=== PATIENT | female | born 1965 | race Caucasian/White ===

== ENCOUNTER 2020-09-03 17:12 | Outpatient (REF) | payer BC, SELFPAY | END 2020-09-03 17:13 | disposition home or self-care (01) | LOC: HO.LAB 17:12 | PROVIDERS: PCP Family Medicine; Visit Provider Internal Medicine | DX: Z20.822 Contact with and (suspected) exposure to COVID-19 (principal) | CPT/HCPCS: 36415; C9803; U0003 ==

== ENCOUNTER 2022-08-26 06:39 | Emergency (ER) | payer BC, SELFPAY ==
[2022-08-26 07:02] VITALS: BP 153/80; PULSE 94; RESP 20; TEMP 36.7; O2SAT 96; BMI 37.0
--- OUTSIDE RECORDS SUMMARY | 2022-08-26 07:23 | XMS_ITS | Continuity of Care Document ---
:1965 Author Organization [facility] Address [address] [place] [address]- Care Team Providers Name Role Phone Rock Baum MD Primary Care Physician [place] [facility] [place] 08[place] [facility] [address] [place], [place] [address] Allergies, Adverse Reactions, Alerts Substance Reaction Severity Status erythromycin Active Immunizations Given and Recorded Vaccine Date Status Refusal Reason SARS-CoV-2 (COVID-19) mRNA-1273 vaccine 01/31/21 Recorded SARS-CoV-2 (COVID-19) mRNA-1273 vaccine 01/02/21 Recorded influenza virus vaccine, inactivated 06/04/20 Recorded Medications acetaminophen 325 mg oral tablet 650 mg, By Mouth, Every 6 hours, May take OTC, follow directions on bottle, Refills 0, Maintenance, 12/19/20 8:09:00 EDT, Partial fill upon patient request if the prescription is for a schedule II opioid drug. Start Date: 12/19/20 Status: OrderedAlbuterol (Eqv-ProAir HFA) 90 mcg/inh inhalation aerosol 0 Refills, Maintenance, 09/02/20 8:18:00 EST, Partial fill upon patient request if the prescription is for a schedule II opioid drug. Start Date: 09/02/20 Status: OrderedAllegra 24 Hour Allergy oral tablet 1 tablet, By Mouth, Daily at bedtime, PRN Other, # 30 tablet, 0 Refills, Maintenance, 12/18/20 8:19:00 EDT, Tablet, Partial fill upon patient request if the prescription is for a schedule II opioid drug. Start Date: 12/18/20 Status: Orderedaspirin 162.5 mg oral capsule, extended release = 325 mg, By Mouth, 2 times a day, enteric coated, 0 Refills, Maintenance, 12/19/20 8:11:00 EDT, ER Capsule, Partial fill upon patient request if the prescription is for a schedule II opioid drug. Start Date: 12/19/20 Status: Orderedazelastine 137 mcg/inh (0.1%) nasal spray 0 Refills, Maintenance, 09/02/20 8:18:00 EST, Partial fill upon patient request if the prescription is for a schedule II opioid drug. Start Date: 09/02/20 Status: OrderedLORazepam 0.5 mg oral tablet 0.5 tablet, By Mouth, 2 times a day, # 15 tablet, 0 Refills, Acute 08/18/21 12:00:00 EST, 07/28/21 14:25:00 EST, [facility]/pharmacy #[id number], 162, cm, 06/23/21 10:55:00 EST, Height Start Date: 07/28/21 Stop Date: 08/18/21 Status: OrderedOmeprazole By Mouth, Daily, OTC, pt unsure of dose, 0 Refills, Maintenance, 02/05/21 13:16:00 EDT, Partial fillupon patient request if the prescription is for a schedule II opioid drug. Start Date: 02/05/21 Status: OrderedtiZANidine 2 mg oral tablet 1, tablet, By Mouth, Daily at bedtime, PRN, # 30 tablet, Refills 1, Tot. Refills 1, NEEDED FOR PAIN, 06/01/21 9:00:00 EDT, Route to Pharmacy Electronically, [facility]/pharmacy #[id number], 162, cm, 03/09/21 15:53:00 EDT, Height Start Date: 06/01/21 Status: Ordered Problem List Condition Effective Dates Status Health Status Informant Anxiety(Confirmed) Active Knee pain, right(Confirmed) Active Restless leg syndrome(Confirmed) Active Social History Social History Type Response Smoking Status Former smoker, quit more arnold n 30 days ago; Other: last tobacco use 1989; entered on: 09/02/20 Sex
--- OUTSIDE RECORDS SUMMARY | 2022-08-26 07:23 | XMS_ITS | Continuity of Care Document ---
:1965 Author Organization [facility] Address [address] [place] [address]- Care Team Providers Name Role Phone Rock Baum MD Primary Care Physician En[facility] [place] [facility] [id number] Date(s): 02/05/21 - 03/07/21 [facility] [address] [place] [address]- Allergies, Adverse Reactions, Alerts Substance Reaction Severity [...] 09/02/20 Status: OrderedLORazepam 0.5 mg oral tablet 1 tablet = 0.5 mg, By Mouth, 2 times a day, PRN Anxiety, 0 Refills, Maintenance, 12/19/20 8:18:00 EDT, Tablet, Partial fill upon patient request if the prescription is for a schedule II opioid drug. Start Date: 12/19/20 Status: OrderedLORazepam 0.5 mg oral tablet 1 tablet = 0.5 mg, By Mouth, 2 times a day, PRN as needed for anxiety, for 30 days, mass pt ok, ok for less, # 15 tablet, 0 Refills, Acute 03/20/21 8:54:00 EDT, 02/18/21 8:54:00 EDT, [facility]/pharmacy #[id number], Partial fill upon patient request if the prescri... Start Date: 02/18/21 Stop Date: 03/20/21 Status: OrderedOmeprazole By Mouth, Daily, OTC, pt unsure of dose, 0 Refills, Maintenance, 02/05/21 13:16:00 EDT, Partial fillupon patient request if the prescription is for a schedule II opioid drug. Start Date: 02/05/21 Status: Ordered Problem List Condition Effective Dates Status Health Status Informant Knee pain, right(Confirmed) Active Colon cancer screening(Confirmed) Active Restless leg syndrome(Confirmed) Active Social History Social History Type Response Smoking Status Former smoker, quit more arnold n 30 days ago; Other: last tobacco use 1989; entered on: 09/02/20 Sex
--- OUTSIDE RECORDS SUMMARY | 2022-08-26 07:23 | XMS_ITS | Continuity of Care Document ---
:1965 Author Organization [facility] Address [address] [place] [address]- Care Team Providers Name Role Phone Rock Baum MD Primary Care Physician [place] [facility] [place] 09/29/21 - 10/29/21 [facility] [address] [place] [address]- Allergies, Adverse Reactions, Alerts Substance Reaction Severity Status erythromycin Active Immunizations Given and Recorded Vaccine Date Status Refusal Reason zoster vaccine, inactivated 05/22/21 Recorded influenza virus vaccine, inactivated 05/22/21 Recorded influenza virus vaccine, inactivated 06/04/20 Recorded SARS-CoV-2 (COVID-19) mRNA-1273 vaccine 01/31/21 Recorded SARS-CoV-2 (COVID-19) mRNA-1273 vaccine 01/02/21 Recorded Medications acetaminophen 325 mg oral tablet [...] 12/19/20 Status: OrderedLORazepam 0.5 mg oral tablet 0.5 tablet, By Mouth, 2 times a day, # 15 tablet, 0 Refills, Maintenance, 10/29/21 17:22:00 EDT, [facility]/pharmacy #[id number], 162, cm, 10/26/21 13:59:00 EDT, Height Start Date: 10/29/21 Status: OrderedOmeprazole By Mouth, Daily, OTC, pt unsure of dose, 0 Refills, Maintenance, 02/05/21 13:16:00 EDT, Partial fillupon patient request if the prescription is for a schedule II opioid drug. Start Date: 02/05/21 Status: OrderedtiZANidine 4 mg oral tablet 4 mg, 1, tablet, By Mouth, Daily at bedtime, # 30 tablet, Refills 3, Tot. Refills 3, Maintenance, 10/29/21 14:38:00 EDT, Route to Pharmacy Electronically, [facility]/pharmacy #[id number], Partial fill upon patient request if the prescription is for a schedule II o... Start Date: 10/29/21 Stop Date: 02/26/22 Status: Ordered Problem List Condition Effective Dates Status Health Status Informant Anxiety(Confirmed) Active Obese class II(Confirmed) Active Restless leg syndrome(Confirmed) Active Social History Social History Type Response Smoking Status Former smoker, quit more arnold n 30 days ago; Other: last tobacco use 1989; entered on: 09/02/20 Sex
--- OUTSIDE RECORDS SUMMARY | 2022-08-26 07:23 | XMS_ITS | Continuity of Care Document ---
:1965 Author Organization [facility] Address [address] [place] [address]- Care Team Providers Name Role Phone Rock Baum MD Primary Care Physician En[facility] Date(s): 08/26/21 - 09/25/21 [facility] [address] [place] [address]- Attending Physician: Jairo Juarez Admitting Physician: Admtr, [id number] Referring Physician: Admtr, Ar8 Allergies, Adverse Reactions, Alerts Substance Reaction Severity [...] day, # 15 tablet, 0 Refills, Maintenance, 09/18/21 12:16:00 EST, [facility]/pharmacy #[id number], 162, cm, 08/26/21 15:43:00 EST, Height Start Date: 09/18/21 Status: OrderedOmeprazole By Mouth, Daily, OTC, pt unsure of dose, 0 Refills, Maintenance, 02/05/21 13:16:00 EDT, Partial fillupon patient request if the prescription is for a schedule II opioid drug. Start Date: 02/05/21 Status: OrderedtiZANidine 4 mg oral tablet 4 mg, 1, tablet, By Mouth, Daily at bedtime, # 30 tablet, Refills 3, Tot. Refills 3, Maintenance, 08/26/21 16:09:00 EST, Do Not Route, Partial fill upon patient request if the prescription is for a schedule II opioid drug. Start Date: 08/26/21 Stop Date: 12/24/21 Status: Ordered Problem List Condition Effective Dates Status Health Status Informant Anxiety(Confirmed) Active Obese class II(Confirmed) Active Restless leg syndrome(Confirmed) Active Social History Social History Type Response Smoking Status Former smoker, quit more arnold n 30 days ago; Other: last tobacco use 1989; entered on: 09/02/20 Sex
--- OUTSIDE RECORDS SUMMARY | 2022-08-26 07:23 | XMS_ITS | Continuity of Care Document ---
:1965 Author Organization [facility] Address [address] [place] [address]- Care Team Providers Name Role Phone Rock Baum MD Primary Care Physician [place] [facility] [place] 02/24/22 - 03/26/22 [facility] [address] [place], [place] [address] Allergies, Adverse Reactions, Alerts Substance Reaction Severity [...] day, # 15 tablet, 0 Refills, Maintenance, 01/28/22 14:58:00 EDT, [facility]/pharmacy #[id number], 160, cm, 12/29/21 13:38:00 EDT, Height Start Date: 01/28/22 Status: OrderedOmeprazole By Mouth, Daily, OTC, pt unsure of dose, 0 Refills, Maintenance, 02/05/21 13:16:00 EDT, Partial fillupon patient request if the prescription is for a schedule II opioid drug. Start Date: 02/05/21 Status: OrderedtiZANidine 4 mg oral tablet 4 mg, 1, tablet, By Mouth, Daily at bedtime, # 30 tablet, Refills 3, Tot. Refills 3, Maintenance, 03/02/22 13:10:00 EDT, Route to Pharmacy Electronically, [facility]/pharmacy #[id number], Partial fill upon patient request if the prescription is for a schedule II o... Start Date: 03/02/22 Stop Date: 06/30/22 Status: Ordered Problem List Condition Effective Dates Status Health Status Informant Anxiety(Confirmed) Active Obese class II(Confirmed) Active Restless leg syndrome(Confirmed) Active Social History Social History Type Response Smoking Status Former smoker, quit more arnold n 30 days ago; Other: last tobacco use 1989; entered on: 09/02/20 Sex
--- OUTSIDE RECORDS SUMMARY | 2022-08-26 07:23 | XMS_ITS | Continuity of Care Document ---
:1965 Author Organization [facility] Address [address] [place] [address]- Care Team Providers Name Role Phone Rock Baum MD Primary Care Physician Encounter 12/20/20 - 12/25/20 [facility] [address] [place] [address]- Discharge Disposition: [facility] Allergies, Adverse Reactions, Alerts Substance Reaction Severity Status erythromycin Active Medications acetaminophen 325 mg oral tablet 650 [...] II opioid drug. Start Date: 09/02/20 Status: Orderedcelecoxib 200 mg oral capsule 1 capsule = 200 mg, By Mouth, Daily, # 30 capsule, 0 Refills, Maintenance, 12/19/20 8:11:00 EDT, Capsule, [facility], Partial fill upon patient request if the prescription is for a schedule II opioid drug., 162, cm, 12/19/20 6:21:00 EDT,... Start Date: 12/19/20 Stop Date: 01/18/21 Status: OrderedLORazepam 0.5 mg oral tablet 1 tablet = 0.5 mg, By Mouth, 2 times a day, PRN Anxiety, 0 Refills, Maintenance, 12/19/20 8:18:00 EDT, Tablet, Partial fill upon patient request if the prescription is for a schedule II opioid drug. Start Date: 12/19/20 Status: OrderedMaalox Plus Liquid 30 mL, By Mouth, Every 4 hours, PRN Other, Heartburn, 0 Refills, Maintenance, 12/19/20 8:11:00 EDT, Suspension, Partial fill upon patient request if the prescription is for a schedule II opioid drug. Start Date: 12/19/20 Status: OrderedMilk of Magnesia Liquid 30 mL, By Mouth, Daily, PRN Constipation, 0 Refills, Maintenance, 12/19/20 8:12:00 EDT, Suspension, Partial fill upon patient request if the prescription is for a schedule II opioid drug. Start Date: 12/19/20 Status: OrderedMiraLax Powder 1 pack/packet = 17 Gm, By Mouth, Daily, PRN Constipation, 0 Refills, Maintenance, 12/19/20 8:12:00 EDT, Powder, Partial fill upon patient request if the prescription is for a schedule II opioid drug. Start Date: 12/19/20 Status: Orderedsenna 187 mg oral tablet 1 tablet = 8.6 mg, By Mouth, Daily at bedtime, PRN as needed for constipation, 0 Refills, Maintenance, 12/19/20 8:13:00 EDT, Tablet, Partial fill upon patient request if the prescription is for a schedule II opioid drug. Start Date: 12/19/20 Status: OrderedtiZANidine 2 mg oral tablet 2 mg, 1, tablet, By Mouth, Daily at bedtime, PRN, Please do Labwork, # 30 tablet, Refills 1, Tot. Refills 1, Maintenance, Pain , Moderate, 09/25/20 9:51:00 EST, Route to Pharmacy Electronically, [facility]/pharmacy #[id number], Partial fill upon patient request if... Start Date: 09/25/20 Status: OrderedtraMADol 50 mg oral tablet See Instructions, PRN Pain , Mild, Take 1-2 tablets By Mouth Every 6 hours as needed, # 56 tablet, 0Refills, Acute 12/26/20 8:13:00 EDT, 12/19/20 8:13:00 EDT, Tablet, [facility], Partialfill upon patient request if the prescription is... Start Date: 12/19/20 Stop Date: 12/26/20 Status: Ordered Problem List Condition Effective Dates Status Health Status Informant Knee pain, right(Confirmed) Active Colon cancer screening(Confirmed) Active Restless leg syndrome(Confirmed) Active Social History Social History Type Response Smoking Status Former smoker, quit more arnold n 30 days ago; Other: last tobacco use 1989; entered on: 09/02/20 Sex
--- OUTSIDE RECORDS SUMMARY | 2022-08-26 07:23 | XMS_ITS | Continuity of Care Document ---
:1965 Author Organization [facility] Address [address] [place] [address]- Care Team Providers Name Role Phone Rock Baum MD Primary Care Physician Encounter [facility] [place] Date(s): 11/28/20 - 12/28/[address] [address]- Attending Physician: Jairo Juarez Admitting Physician: AdmtrJairo Referring Physician: Admtr, Ar8 Allergies, Adverse Reactions, [...] 0 Refills, Maintenance, 12/19/20 8:11:00 EDT, Capsule, [facility], Partial fill upon patient [...] 09/25/20 9:51:00 EST, Route to Pharmacy Electronically, [facility]/pharmacy #[id number], Partial fill upon patient request if... Start Date: 09/25/20 Status: Ordered Problem List Condition Effective Dates Status Health Status Informant Knee pain, right(Confirmed) Active Colon cancer screening(Confirmed) Active Restless leg syndrome(Confirmed) Active Social History Social History Type Response Smoking Status Former smoker, quit more arnold n 30 days ago; Other: last tobacco use 1989; entered on: 09/02/20 Sex
--- OUTSIDE RECORDS SUMMARY | 2022-08-26 07:23 | XMS_ITS | Continuity of Care Document ---
:1965 Author Organization [facility] Address [address] [place] [address]- Care Team Providers Name Role Phone Rock Baum MD Primary Care Physician [place] [facility] [place](s[place] 03/04/22 - 03/11/22 [facility] [address] [place] [address]- Encounter Diagnosis Right shoulder pain (Discharge Diagnosis) - 03/04/22 Pain of left heel (Discharge Diagnosis) - 03/04/22 Knee pain (Discharge Diagnosis) - 03/04/22 Attending Physician: Rock Baum MD Allergies, Adverse Reactions, Alerts Substance Reaction Severity [...] tablet, 0 Refills, Maintenance, 01/28/22 14:58:00 EDT, [facility]/pharmacy #[id number], 160, cm, 12/29/21 13:38:00 EDT, [...] 03/02/22 13:10:00 EDT, Route to Pharmacy Electronically, [facility]/pharmacy #[id number], Partial fill upon patient request if the prescription is for a schedule II o... Start Date: 03/02/22 Stop Date: 06/30/22 Status: Ordered Problem List Condition Effective Dates Status Health Status Informant Anxiety(Confirmed) Active Obese class II(Confirmed) Active Restless leg syndrome(Confirmed) Active Diagnosis Diagnosis Type Effective Dates Health Status Clinical In formant Service Right shoulder Discharge 03/04/22 pain Diagnosis Pain of left Discharge 03/04/22 heel Diagnosis Knee pain Discharge 03/04/22 Diagnosis Vital Signs Most recent to oldest [Reference Range]: 1 Height 160 cm (03/04/22 8:20 AM) Weight 97.8 kg (03/04/22 8:20 AM) Oxygen Saturation [94-100 %] 98 % (03/04/22 8:20 AM) Pulse Rate [55-90 bpm] 90 bpm (03/04/22 8:20 AM) Body Mass Index [18.5-24.99] 38.2 *>HHI* (03/04/22 8:20 AM) Blood Pressure [90-138/55-84 mm Hg] 137/82 mm Hg (03/04/22 8:20 AM) Respiratory Rate [16-30 br/min] 20 br/min (03/04/22 8:20 AM) Blood pressure sites Arm, left (03/04/22 8:20 AM) Social History Social History Type Response Smoking Status Former smoker, quit more arnold n 30 days ago; Other: last tobacco use 1989; entered on: 09/02/20 Sex
--- OUTSIDE RECORDS SUMMARY | 2022-08-26 07:23 | XMS_ITS | Continuity of Care Document ---
:1965 Author Organization [facility] Address [address] [place] [address]- Care Team Providers Name Role Phone Rock Baum MD Primary Care Physician [place] [facility] [place] Date(s[place] 02/05/21 - 03/07/21 [facility] [address] [place] [address]- Attending Physician: Jairo Juarez Admitting Physician: Admtr, [...] Acute 03/20/21 8:54:00 EDT, 02/18/21 8:54:00 EDT, [facility]/pharmacy #[id number], Partial fill upon patient request [...]
--- OUTSIDE RECORDS SUMMARY | 2022-08-26 07:23 | XMS_ITS | Continuity of Care Document ---
:1965 Author Organization [facility] Address [address] [place] [address]- Care Team Providers Name Role Phone Rock Baum MD Primary Care Physician [place] [facility] [place] - 04/03/22 [facility] [address] [place], [place] [address] Attending Physician: Jairo Juarez Admitting Physician: AdmtrJairo [...] tablet, 0 Refills, Maintenance, 01/28/22 14:58:00 EDT, [facility]/pharmacy #[id number], 160, cm, 12/29/21 13:38:00 EDT, [...] 03/02/22 13:10:00 EDT, Route to Pharmacy Electronically, [facility]/pharmacy #[id number], Partial fill upon patient request [...]
--- OUTSIDE RECORDS SUMMARY | 2022-08-26 07:24 | XMS_ITS | Continuity of Care Document ---
:1965 Author Organization [facility] Address [address] [place] [address]- Care Team Providers Name Role Phone Rock Baum MD Primary Care Physician En[place] [facility] [place] Date(s): 01/07/21 - 02/06/21 [facility] [address] [place] [address]- Allergies, Adverse Reactions, Alerts Substance Reaction Severity [...] II opioid drug. Start Date: 12/19/20 Status: OrderedOmeprazole By Mouth, Daily, OTC, pt [...]
--- OUTSIDE RECORDS SUMMARY | 2022-08-26 07:24 | XMS_ITS | Continuity of Care Document ---
:1965 Author Organization [facility] Address [address] [place] [address]- Care Team Providers Name Role Phone Rock Baum MD Primary Care Physician [place] [facility] [place] Date(s): 11/17/21 - 12/17/21 [facility] [address] [place], [place] [address] Allergies, Adverse Reactions, Alerts Substance Reaction [...] tablet, 0 Refills, Maintenance, 10/29/21 17:22:00 EDT, [facility]/pharmacy #[id number], 162, cm, 10/26/21 13:59:00 EDT, [...] 10/29/21 14:38:00 EDT, Route to Pharmacy Electronically, [facility]/pharmacy #[id number], Partial fill upon patient request [...]
--- OUTSIDE RECORDS SUMMARY | 2022-08-26 07:24 | XMS_ITS | Continuity of Care Document ---
:1965 Author Organization [facility] Address [address] [place] [address]- Care Team Providers Name Role Phone Rock Baum MD Primary Care Physician En[facility] [place] Date(s): 03/15/22 - 04/14/22 [facility] [address] [place], [place] [address] Allergies, Adverse Reactions, Alerts Substance Reaction [...] day, # 15 tablet, 0 Refills, Maintenance, 04/05/22 8:19:00 EDT, [facility]/pharmacy #[id number], 160, cm, 03/04/22 8:20:00 EDT, Height Start Date: 04/05/22 Status: OrderedOmeprazole By Mouth, Daily, OTC, pt [...] 03/02/22 13:10:00 EDT, Route to Pharmacy Electronically, [facility]/pharmacy #[id number], Partial fill upon patient request if [...] tobacco use 1989; entered on: 09/02/20 Sex Care Team PersonnelName: Rock Baum MD Address: [address] [place] [id number]
--- OUTSIDE RECORDS SUMMARY | 2022-08-26 07:24 | XMS_ITS | Continuity of Care Document ---
:1965 Author Organization [facility] Address [address] [place] [address]- Care Team Providers Name Role Phone Rock Baum MD Primary Care Physician [id number] Date(s): 08/26/21 - 09/02/21 [facility] [address] [place] [address]- Encounter Diagnosis Annual physical exam (Discharge Diagnosis) - 08/26/21 GERD (gastroesophageal reflux disease) (Discharge Diagnosis) - 08/26/21 Restless leg syndrome (Discharge Diagnosis) - 08/26/21 Attending Physician: Rock Baum MD Allergies, Adverse [...] Dates Health Status Clinical In formant Service Annual physical Discharge 08/26/21 exam Diagnosis GERD Discharge 08/26/21 (gastroesophagea Diagnosis l reflux disease) Restless leg Discharge 08/26/21 syndrome Diagnosis Vital Signs Most recent to oldest [Reference Range]: 1 Height 162 cm (08/26/21 3:43 PM) Weight 95.4 kg (08/26/21 3:43 PM) Oxygen Saturation [94-100 %] 97 % (08/26/21 3:43 PM) Pulse Rate [55-90 bpm] 90 bpm (08/26/21 3:43 PM) Body Mass Index [18.5-24.99] 36.35 *>HHI* (08/26/21 3:43 PM) Blood Pressure [90-138/55-84 mm Hg] 120/80 mm Hg (08/26/21 3:43 PM) Weight Obtained Via Standing scale (08/26/21 3:43 PM) Social History Social History Type Response Smoking Status Former smoker, quit more arnold n 30 days ago; Other: last tobacco use 1989; entered on: 09/02/20 Sex
--- OUTSIDE RECORDS SUMMARY | 2022-08-26 07:24 | XMS_ITS | Continuity of Care Document ---
:1965 Author Organization [facility] Address [address] [place] [address]- Care Team Providers Name Role Phone Rock Baum MD Primary Care Physician En[place] [facility] [place] Date(s): 03/15/22 - 04/14/22 [facility] [address] [place], [place] [address] Allergies, Adverse Reactions, Alerts Substance Reaction [...] tablet, 0 Refills, Maintenance, 04/05/22 8:19:00 EDT, [facility]/pharmacy #[id number], 160, cm, 03/04/22 8:20:00 EDT, Height [...] 03/02/22 13:10:00 EDT, Route to Pharmacy Electronically, [facility]/pharmacy #[id number], Partial fill upon patient request if [...] Care Team PersonnelName: Rock Baum MD Address: [address] [place] [address]
--- OUTSIDE RECORDS SUMMARY | 2022-08-26 07:24 | XMS_ITS | Continuity of Care Document ---
:1965 Author Organization [facility] Address [address] [place] [address]- Care Team Providers Name Role Phone Rock Baum MD Primary Care Physician [place] [facility] [place] 10/20/21 - 11/19/21 [facility] [address] [place] [address]- Allergies, Adverse Reactions, Alerts Substance Reaction Severity [...] tablet, 0 Refills, Maintenance, 10/29/21 17:22:00 EDT, [facility]/pharmacy #[id number], 162, cm, 10/26/21 13:59:00 EDT, Height [...] 10/29/21 14:38:00 EDT, Route to Pharmacy Electronically, [facility]/pharmacy #[id number], Partial fill upon patient request if [...]
--- OUTSIDE RECORDS SUMMARY | 2022-08-26 07:24 | XMS_ITS | Continuity of Care Document ---
:1965 Author Organization [facility] Address [address] [place] [address]- Care Team Providers Name Role Phone Rock Baum MD Primary Care Physician Encounter [facility] Date(s): 09/02/20 - 09/09/20 [facility] [address] [place] [address]- Encounter Diagnosis Knee pain, right (Discharge Diagnosis) - 09/02/20 Restless leg syndrome (Discharge Diagnosis) - 09/02/20 Colon cancer screening (Discharge Diagnosis) - 09/02/20 Lipid screening (Discharge Diagnosis) - 09/02/20 Need for hepatitis C screening test (Discharge Diagnosis) - 09/02/20 Diabetes mellitus screening (Discharge Diagnosis) - 09/02/20 Anxiety (Discharge Diagnosis) - 09/02/20 Attending Physician: Rock Baum MD Allergies, Adverse Reactions, Alerts Substance Reaction Severity Status erythromycin Active Medications Albuterol (Eqv-ProAir HFA) 90 mcg/inh inhalation aerosol 0 Refills, Maintenance, 09/02/20 8:18:00 EST, Partial fill upon patient request if the prescription is for a schedule II opioid drug. Start Date: 09/02/20 Status: Orderedazelastine 137 mcg/inh (0.1%) nasal spray 0 Refills, Maintenance, 09/02/20 8:18:00 EST, Partial fill upon patient request if the prescription is for a schedule II opioid drug. Start Date: 09/02/20 Status: OrderedFluzone Quadrivalent 9700-8044 intramuscular suspension 0 Refills, Maintenance, 09/02/20 8:17:00 EST, Partial fill upon patient request if the prescription is for a schedule II opioid drug. Start Date: 09/02/20 Status: Orderedlevocetirizine 5 mg oral tablet 0 Refills, Maintenance, 09/02/20 8:17:00 EST, Partial fill upon patient request if the prescription is for a schedule II opioid drug. Start Date: 09/02/20 Status: OrderedLORazepam 0.5 mg oral tablet 1 tablet = 0.5 mg, By Mouth, 2 times a day, PRN as needed for anxiety, # 15 tablet, 0 Refills, Acute09/30/20 12:00:00 EST, 09/02/20 8:54:00 EST, [facility]/pharmacy #[id number], Partial fill upon patient request if the prescription is for a schedule II opioid drug. Start Date: 09/02/20 Stop Date: 09/30/20 Status: OrderedtiZANidine 2 mg oral tablet 2 mg, 1, tablet, By Mouth, Daily at bedtime, as needed, # 30 tablet, Refills 1, Tot. Refills 1, Maintenance, 09/02/20 8:52:00 EST, Route to Pharmacy Electronically, [facility]/pharmacy #[id number], Partial fill upon patient request if the prescription is for a jeanette... Start Date: 09/02/20 Status: Ordered Problem List Condition Effective Dates Status Health Status Informant Knee pain, right(Confirmed) Active Colon cancer screening(Confirmed) Active Restless leg syndrome(Confirmed) Active Diagnosis Diagnosis Type Effective Dates Health Status Clinical In formant Service Knee pain, right Discharge 09/02/20 Diagnosis Restless leg Discharge 09/02/20 syndrome Diagnosis Colon cancer Discharge 09/02/20 screening Diagnosis Lipid screening Discharge 09/02/20 Diagnosis Need for Discharge 09/02/20 hepatitis C Diagnosis screening test Diabetes Discharge 09/02/20 mellitus Diagnosis screening Anxiety Discharge 09/02/20 Diagnosis Procedures Procedure Date Related Diagnosis Body Site Status Knee replacement1 Completed Repair of knee joint Complet ed Total right shoulder replacement Completed 72119 Social History Social History Type Response Smoking Status Former smoker, quit more arnold n 30 days ago; Other: last tobacco use 1989; entered on: 09/02/20 Sex Female
--- OUTSIDE RECORDS SUMMARY | 2022-08-26 07:24 | XMS_ITS | Continuity of Care Document ---
:1965 Author Organization [facility] Address [address] [place] [address]- Care Team Providers Name Role Phone Sarika CRESPO, Rock Benavides Primary Care Physician Encounter [facility] [id number] Date(s): 02/05/21 - 02/12/21 [facility] [address] [place] [address]- Encounter Diagnosis Local reaction to COVID-19 vaccine (Discharge Diagnosis) - 02/05/21 Attending Physician: Gemma Gardner MD Allergies, Adverse Reactions, Alerts Substance Reaction [...] Dates Health Status Clinical In formant Service Local reaction Discharge 02/05/21 to COVID-19 Diagnosis vaccine Vital Signs Most recent to oldest [Reference Range]: 1 Height 162 cm (02/05/21 1:11 PM) Social History Social History Type Response Smoking Status Former smoker, quit more arnold n 30 days ago; Other: last tobacco use 1989; entered on: 09/02/20 Sex
--- OUTSIDE RECORDS SUMMARY | 2022-08-26 07:24 | XMS_ITS | Continuity of Care Document ---
:1965 Author Organization [facility] Address [address] [place] [address]- Care Team Providers Name Role Phone Rock Baum MD Primary Care Physician Encounter [facility] Date(s): 10/26/21 - 11/25/21 [facility] [address] [place] [address]- Attending Physician: Jairo Juarez Admitting Physician: Jairo Juarez Referring Physician: Jairo Juarez Allergies, Adverse Reactions, Alerts Substance Reaction Severity [...] tablet, 0 Refills, Maintenance, 10/29/21 17:22:00 EDT, [facility]/pharmacy #[id number], 162, cm, 10/26/21 13:59:00 EDT, [...] 10/29/21 14:38:00 EDT, Route to Pharmacy Electronically, [facility]/pharmacy #[id number], Partial fill upon patient request [...]
--- OUTSIDE RECORDS SUMMARY | 2022-08-26 07:24 | XMS_ITS | Continuity of Care Document ---
:1965 Author Organization [facility] Address [address] [place] [address]- Care Team Providers Name Role Phone Rock Baum MD Primary Care Physician [place] [facility] [place] 10/21/21 - 11/20/21 [facility] [address] [place] [address]- Allergies, Adverse Reactions, Alerts Substance Reaction Severity [...] tablet, 0 Refills, Maintenance, 10/29/21 17:22:00 EDT, [facility]/pharmacy #[id number], 162, cm, 10/26/21 13:59:00 EDT, Height [...] 10/29/21 14:38:00 EDT, Route to Pharmacy Electronically, [facility]/pharmacy #[id number], Partial fill upon patient request [...]
--- OUTSIDE RECORDS SUMMARY | 2022-08-26 07:24 | XMS_ITS | Continuity of Care Document ---
:1965 Author Organization [facility] Address [address] [place] [address]- Care Team Providers Name Role Phone Sarika CRESPO, Rock Benavides Primary Care Physician Encounter [facility] [place] Date(s): 11/22/20 - 12/28/[address] [address] Attending Physician: Pedro Hardwick MD Admitting Physician: Pedro Hardwick MD Referring Physician: Pedro Hardwick MD Allergies, Adverse Reactions, Alerts Substance Reaction [...] 0 Refills, Maintenance, 12/19/20 8:11:00 EDT, Capsule, [facility], Partial fill upon patient [...] 09/25/20 9:51:00 EST, Route to Pharmacy Electronically, [facility]/pharmacy #[id number], Partial fill upon patient request if... Start [...]
--- OUTSIDE RECORDS SUMMARY | 2022-08-26 07:24 | XMS_ITS | Continuity of Care Document ---
:1965 Author Organization [facility] Address [address] [place] [address]- Care Team Providers Name Role Phone Rock Baum MD Primary Care Physician Encounter [facility] [place] [facility] Date(s): 09/02/20 - 10/02/20 [facility] [address] [place] [address]- Attending Physician: Jairo Juarez Admitting Physician: Jairo Juarez Referring Physician: AdmtrJairo Allergies, Adverse Reactions, Alerts Substance Reaction Severity [...] drug. Start Date: 09/02/20 Status: OrderedFluzone Quadrivalent intramuscular suspension 0 Refills, Maintenance, 09/02/20 8:17:00 EST, Partial fill upon patient request if the prescription is for a schedule II opioid drug. Start Date: 09/02/20 Status: Orderedlevocetirizine 5 mg oral tablet 0 Refills, Maintenance, 09/02/20 8:17:00 EST, Partial fill upon patient request if the prescription is for a schedule II opioid drug. Start Date: 09/02/20 Status: OrderedtiZANidine 2 mg oral tablet 2 mg, 1, tablet, By Mouth, Daily at bedtime, PRN, Please do Labwork, # 30 tablet, Refills 1, Tot. Refills 1, Maintenance, Pain , Moderate, 09/25/20 9:51:00 EST, Route to Pharmacy Electronically, [facility]/pharmacy #[id number], Partial fill upon patient request if... Start [...]
--- OUTSIDE RECORDS SUMMARY | 2022-08-26 07:24 | XMS_ITS | Continuity of Care Document ---
:1965 Author Organization [facility] Address [address] [place] [address]- Care Team Providers Name Role Phone Rock Baum MD Primary Care Physician [place] [facility] [place]s): 03/09/21 - 04/08/21 [facility] [address] [place] [address]- Attending Physician: Jairo Juarez Admitting Physician: AdmtrJairo [...] Mouth, 2 times a day, PRN Anxiety, # 15 tablet, 0 Refills, Acute 04/17/21 10:38:00 EDT, 03/31/21 16:56:00 EDT, Tablet, [facility]/pharmacy #[id number], Partial fill upon patient request if theprescription is for a schedule II opioid drug., 1... Start Date: 03/31/21 Stop Date: 04/17/21 Status: OrderedOmeprazole By Mouth, Daily, OTC, pt unsure of dose, 0 Refills, Maintenance, 02/05/21 13:16:00 EDT, Partial fillupon patient request if the prescription is for a schedule II opioid drug. Start Date: 02/05/21 Status: Ordered Problem List Condition Effective Dates Status Health Status Informant Knee pain, right(Confirmed) Active Restless leg syndrome(Confirmed) Active Social History Social History Type Response Smoking Status Former smoker, quit more arnold n 30 days ago; Other: last tobacco use 1989; entered on: 09/02/20 Sex
--- OUTSIDE RECORDS SUMMARY | 2022-08-26 07:24 | XMS_ITS | Continuity of Care Document ---
:1965 Author Organization [facility] Address [address] [place] [address]- Care Team Providers Name Role Phone Rock Baum MD Primary Care Physician Encounter [facility] Date(s): 06/23/21 - 06/30/21 [facility] [address] [place], [place] [address] Encounter Diagnosis Ear fullness (Discharge Diagnosis) - 06/28/21 Attending Physician: Manolo BAKER, Rome Nielson Allergies, Adverse Reactions, Alerts Substance Reaction Severity [...] II opioid drug. Start Date: 09/02/20 Status: Orderedipratropium nasal 21 mcg/inh spray 2 sprays, Nares, Both, 2 times a day, for 14 days, # 30 mL, 0 Refills, Acute 07/07/21 11:29:00 EST, 06/23/21 11:29:00 EST, [place], [facility]/pharmacy #[id number], Partial fill upon patient request if the prescription is for a schedule II opioid drug., 2 sprays Carl... Start Date: 06/23/21 Stop Date: 07/07/21 Status: OrderedLORazepam 0.5 mg oral tablet 1 tablet = 0.5 mg, By Mouth, Daily, PRN Anxiety, As needed for anxiety, # 15 tablet, 0 Refills, Maintenance, 06/24/21 16:34:00 EST, Tablet, [facility]/pharmacy #[id number], Partial fill upon patient request if the prescription is for a schedule II opioid drug., 16... Start Date: 06/24/21 Status: OrderedOmeprazole By Mouth, Daily, OTC, pt [...] 06/01/21 9:00:00 EDT, Route to Pharmacy Electronically, [facility]/pharmacy #[id number], 162, cm, 03/09/21 15:53:00 EDT, Height Start Date: 06/01/21 Status: Ordered Problem List Condition Effective Dates Status Health Status Informant Anxiety(Confirmed) Active Knee pain, right(Confirmed) Active Restless leg syndrome(Confirmed) Active Diagnosis Diagnosis Type Effective Dates Health Status Clinical In formant Service Ear fullness Discharge 06/28/21 Diagnosis Vital Signs Most recent to oldest [Reference Range]: 1 Height 162 cm (06/23/21 10:55 AM) Oxygen Saturation [94-100 %] 96 % (06/23/21 10:55 AM) Pulse Rate [55-90 bpm] 86 bpm (06/23/21 10:55 AM) Blood Pressure [90-138/55-84 mm Hg] 125/82 mm Hg (06/23/21 10:55 AM) Respiratory Rate [16-30 br/min] 18 br/min (06/23/21 10:55 AM) Blood pressure sites Arm, right (06/23/21 10:55 AM) Social History Social History Type Response Smoking Status Former smoker, quit more arnold n 30 days ago; Other: last tobacco use 1989; entered on: 09/02/20 Sex
--- OUTSIDE RECORDS SUMMARY | 2022-08-26 07:24 | XMS_ITS | Continuity of Care Document ---
:1965 Author Organization [facility] Address [address] [place] [address]- Care Team Providers Name Role Phone Rock Baum MD Primary Care Physician Encounter [facility] Date(s): 04/14/21 - 05/14/21 [facility] [address] [place], [place] [address] Allergies, Adverse Reactions, Alerts Substance Reaction [...] II opioid drug. Start Date: 09/02/20 Status: OrderedOmeprazole By Mouth, Daily, OTC, pt unsure of dose, 0 Refills, Maintenance, 02/05/21 13:16:00 EDT, Partial fillupon patient request if the prescription is for a schedule II opioid drug. Start Date: 02/05/21 Status: OrderedtiZANidine 2 mg oral tablet 1, tablet, By Mouth, Daily at bedtime, PRN, # 30 tablet, Refills 1, NEEDED FOR PAIN, Route to Pharmacy Electronically, [id number], 162, cm, 03/09/21 15:53:00 EDT, Height Start Date: 05/04/21 Status: Ordered Problem List Condition Effective Dates Status Health Status Informant Anxiety(Confirmed) Active Knee pain, right(Confirmed) Active Restless leg syndrome(Confirmed) Active Social History Social History Type Response Smoking Status Former smoker, quit more arnold n 30 days ago; Other: last tobacco use 1989; entered on: 09/02/20 Sex
--- OUTSIDE RECORDS SUMMARY | 2022-08-26 07:24 | XMS_ITS | Continuity of Care Document ---
:1965 Author Organization [facility] Address [address] [place] [address]- Care Team Providers Name Role Phone Sarika CRESPO, Rock Benavides Primary Care Physician Encounter [facility] Date(s): 12/18/20 - 01/17/[address] [address] Attending Physician: Not on Staff, Attending MD Admitting Physician: Not on Staff, Admitting MD Referring Physician: Not on Staff, Referring MD Allergies, Adverse Reactions, Alerts Substance Reaction [...] 0 Refills, Maintenance, 12/19/20 8:11:00 EDT, Capsule, [facility], Partial fill upon [...] Tot. Refills 1, Maintenance, Pain , Moderate, 01/06/21 12:44:00 EDT, Route to Pharmacy Electronically, [facility]/pharmacy #[id number], Partial fill upon patient request i... Start Date: 01/06/21 Status: Ordered Problem List Condition Effective Dates Status Health Status Informant Knee pain, right(Confirmed) Active Colon cancer screening(Confirmed) Active Restless leg syndrome(Confirmed) Active Social History Social History Type Response Smoking Status Former smoker, quit more arnold n 30 days ago; Other: last tobacco use 1989; entered on: 09/02/20 Sex
--- OUTSIDE RECORDS SUMMARY | 2022-08-26 07:24 | XMS_ITS | Continuity of Care Document ---
:1965 Author Organization [facility] Address [address] [place] [address]- Care Team Providers Name Role Phone Rock Baum MD Primary Care Physician En[place] [facility] [place] [id number] Date(s): 04/25/21 - 09/17/21 [facility] [address] [place] [address]- Attending Physician: Rock Baum MD Allergies, Adverse [...]
--- OUTSIDE RECORDS SUMMARY | 2022-08-26 07:24 | XMS_ITS | Continuity of Care Document ---
:1965 Author Organization [facility] Address [address] [place] [address]- Care Team Providers Name Role Phone Rock Baum MD Primary Care Physician En[place] [facility] [place] Date(s): 09/25/21 - 10/25/21 [facility] [address] [place], [place] [address] Allergies, Adverse Reactions, Alerts Substance Reaction Severity [...] tablet, 0 Refills, Maintenance, 09/18/21 12:16:00 EST, [facility]/pharmacy #[id number], 162, cm, 08/26/21 15:43:00 EST, [...]
--- OUTSIDE RECORDS SUMMARY | 2022-08-26 07:24 | XMS_ITS | Continuity of Care Document ---
:1965 Author Organization [facility] Address [address] [place] [address]- Care Team Providers Name Role Phone Rock Baum MD Primary Care Physician Encounter [facility] [place] Date(s): 04/23/22 - 05/23/22 [facility] [address] [place], [place] [address] Allergies, Adverse Reactions, Alerts Substance Reaction Severity [...] II opioid drug. Start Date: 12/19/20 Status: Ordereddiclofenac sodium 75 mg oral delayed release tablet 1 tablet = 75 mg, By Mouth, 2 times a day, TAKE 1 TABLET BY MOUTH WTICE DAILY, # 60 tablet, 0 Refills, Maintenance, 05/07/22 16:37:00 EDT, EC Tablet, [facility]/pharmacy #[id number], Partial fill upon patient request if the prescription is for a schedule II opioid... Start Date: 05/07/22 Stop Date: 06/06/22 Status: OrderedLORazepam 0.5 mg oral tablet 0.5 tablet, By Mouth, 2 times a day, # 15 tablet, 0 Refills, Maintenance, 05/03/22 8:06:00 EDT, [facility]/pharmacy #[id number], 160, cm, 03/04/22 8:20:00 EDT, Height Start Date: 05/03/22 Status: OrderedOmeprazole By Mouth, Daily, OTC, pt [...] 13:10:00 EDT, Route to Pharmacy Electronically, [facility]/pharmacy #[id number], Partial fill upon patient request if the prescription is for a schedule II o... Start Date: 03/02/22 Stop Date: 06/30/22 Status: Ordered Problem List Condition Confirmation Course Effective Dates Status Health Stat us Informant Anxiety Confirmed Active Obese class II Confirmed Active Restless leg Confirmed Active syndrome Social History Social History Type Response Smoking Status Former smoker, quit more arnold n 30 days ago; Other: last tobacco use 1989; entered on: 09/02/20 Sex Patient Care team information PersonnelName: Sarika CRESPO, Rock Benavides [facility]: [facility] [place], [place] [address]
--- OUTSIDE RECORDS SUMMARY | 2022-08-26 07:24 | XMS_ITS | Continuity of Care Document ---
:1965 Author Organization [facility] Address [address] [place] [address]- Care Team Providers Name Role Phone Sarika CRESPO, Rock Benavides Primary Care Physician [place] [facility] [place] Date(s): 12/29/21 - 12/29/[address] [id number] Discharge Disposition: A-D/C Home Attending Physician: Yang CRESPO, Richardson Admitting Physician: Yang CRESPO, Richardson Referring Physician: Yang CRESPO, Richardson Allergies, Adverse Reactions, Alerts Substance Reaction Severity [...] tablet, 0 Refills, Maintenance, 10/29/21 17:22:00 EDT, [facility]/pharmacy #[id number], 162, cm, 10/26/21 13:59:00 EDT, [...] 10/29/21 14:38:00 EDT, Route to Pharmacy Electronically, [facility]/pharmacy #[id number], Partial fill upon patient request if the prescription is for a schedule II o... Start Date: 10/29/21 Stop Date: 02/26/22 Status: Ordered Problem List Condition Effective Dates Status Health Status Informant Anxiety(Confirmed) Active Obese class II(Confirmed) Active Restless leg syndrome(Confirmed) Active Vital Signs Most recent to oldest 1 2 3 [Reference Range]: Height 160 cm (12/29/21 1:38 PM) Weight 94.8 kg (12/29/21 1:38 PM) Oxygen Saturation [94-100 99 % 100 % 100 % %] (12/29/21 2:53 PM) (12/29/21 2:39 PM) (12/29/21 1:3 8 PM) Pulse Rate [55-90 bpm] 84 bpm (12/29/21 1:38 PM) Body Mass Index 37.03 [18.5-24.99] *>HHI* (12/29/21 1:38 PM) Blood Pressure 127/97 mm Hg 121/82 mm Hg 160/95 mm Hg [90-138/55-84 mm Hg] (12/29/21 2:53 PM) (12/29/21 2:39 PM) *H* (12/29/21 1:38 PM ) Respiratory Rate [16-30 20 br/min 16 br/min 16 br/mi n br/min] (12/29/21 2:53 PM) (12/29/21 2:39 PM) (12/29/21 1:3 8 PM) Temperature [96.8-100.4 97.3 DegF DegF] (12/29/21 1:38 PM) Mode of Delivery (Oxygen) Room air (12/29/21 1:38 PM) Blood pressure sites Arm, left Arm, left Arm, left (12/29/21 2:53 PM) (12/29/21 2:39 PM) (12/29/21 1:3 8 PM) Temperature Route Temporal (12/29/21 1:38 PM) Weight Obtained Via Patient/family stated (12/29/21 1:38 PM) Social History Social History Type Response Smoking Status Former smoker, quit more arnold n 30 days ago; Other: last tobacco use 1989; entered on: 09/02/20 Sex
[2022-08-26 09:15] VITALS: BP 154/90; PULSE 86; RESP 16; TEMP 36.9; O2SAT 96
[2022-08-26] MEDS: Lidocaine HCl 4 % Topical 50 ML SOLUTION 1 APPL TOPICAL (10:06)
[2022-08-26 11:04] VITALS: BP 159/83; PULSE 82; RESP 16; O2SAT 98
--- NOTE | 2022-08-26 11:13 | ED_ITS ---
HPI - General Adult General Chief complaint: Skin/Abscess/Foreign Body Stated complaint: possible cyst in nose Time Seen by Provider: 08/26/22 08:00 Source: patient Mode of arrival: ambulatory History of Present Illness HPI narrative: 57-year-old female, not diabetic, presents with onset of pain at the inner left nostril that started on Tuesday and was not associated with any obvious ?pimple?, patient has tried warm compresses but the swelling and pain have continued to increase, she attempted to express any pus and does endorse that there has been crusting noted at the same nostril and patient also complaining of headache but denies any visual blurring/double/pain on eye movement. Patient denies any ear pain but does state she has pain across the left maxillary area. Related Data Previous Rx's Medication Instructions Recorded valacyclovir 1 gram tablet 1,000 mg PO TID 7 days #21 tabs 08/26/22 (Valtrex) Allergies Allergy/AdvReac Type Severity Reaction Status Date / Time erythromycin base Allergy Rash Verified 08/26/22 07:06 Review of Systems Review of Systems: Pertinent positives and negatives as stated in [facility] Past Medical History Source: nursing notes reviewed Social History Social History Advance Directives: No Physical Exam ED Vital Signs: Vital Signs - 24 hr 08/26/22 07:02 08/26/22 09:15 08/26/22 11:04 Temperature 98.0 F 98.5 F Pulse Rate 94 86 82 Respiratory Rate 20 16 16 Blood Pressure 153/80 H 154/90 H 159/83 H Pulse Oximetry 96 96 98 Oxygen Delivery Method Room Air BMI result Body Mass Index 37.0 VITAL SIGNS: Reviewed. GENERAL: Well developed, well nourished, in no acute distress. HEAD: Normocephalic/atraumatic, there is tenderness to palpation over left maxillary sinus EYES: PERRLA, EOMI, no conjunctival or scleral injection noted EARS: Ext canals without abnormality, TMs non-bulging and non-erythematous, no vesicles appreciated NOSE: Nares patent bilateral, tip of nose is grossly erythematous with tenderness on palpation, there are noted crusted lesions at the left nare without evidence to suggest abscess OROPHARYNX: no oral lesions noted, posterior pharynx clear, no vesicular rash noted NECK: Supple, no adenopathy LUNGS: Normal breath sounds. No adventitious sounds or accessory muscle use. SpO2<98> CARDIOVASCULAR: Regular rate and rhythm without noted murmurs, ABDOMEN: Soft, non-tender, non-distended with bowel sounds. MUSCULOSKELETAL: No tenderness, deformities, or effusions noted on gross inspection. EXTREMITIES: No cyanosis, clubbing or edema. SKIN: Inspection of the skin reveals no rashes NEUROLOGIC: Alert and oriented x 4. Strength and sensation to light touch were grossly intact x 4. Medications Administered Discontinued Medications Generic Name Dose Route Start Last Admin Trade Name Neftaly PRN Reason Stop Dose Admin Lidocaine HCl 5 ml 08/26/22 09:44 08/26/22 10:06 Lidocaine Hcl 4 % Mpf 5 Ml Ampul TOPICAL 08/26/22 09:45 Not Given ONCE ONE Protocol Lidocaine HCl 1 appl 08/26/22 10:03 08/26/22 10:06 Lidocaine Hcl 4 % Topical 50 Ml Solution TOPICAL 08/26/22 10:04 1 appl ONCE ONE Administration Protocol Medical Decision Making Medical Decision Making MDM Narrative: 57-year-old female who is not a diabetic presents with significant swelling/redness and appears to be crusted vesicles at the left nare, no evidence of skin vesicles a crossed face, no vesicles noted intraoral or intra ear. Did offer patient 4% lidocaine to be applied directly to the left nare as well as combination analgesics. Although patient sources that she has had her shingles vaccine this is highly suspicious for herpes zoster and prompted consultation with Ophthalmology. I have spoken with Dr. Montenegro who will see the patient in the office. I will start patient on acyclovir at this time and defer steroid prescription to Ophthalmology. All results were discussed with patient bedside she is otherwise discharged home in stable condition. I have no clinical suspicion that this is an underlying abscess. Differential Diagnosis Differential Diagnoses: The differential diagnosis associated with the pres entation includes Please see the discussion above Consult Healthcare Provider Management of the patient was discussed with: Armoring Machine Operator [id number]: Consultation with Ophthalmology for concern regarding V1 herpes zoster with suspected Pacheco sign. Discharge Plan Discharge Clinical Impression: Herpes zoster, Pacheco's sign Patient Disposition: Home, Self-Care Instructions: Shingles (ED) Additional Instructions: 1. Please go directly to Dr. Montenegro's office for evaluation of your eye. 2. You have been started on valacyclovir and should continue this in its entirety. Prescriptions: New valacyclovir [Valtrex] 1 gram tablet 1,000 mg PO TID 7 Days Qty: 21 0RF Referrals: Ava Diaz RN [Emergency Nurse] - Seth Montenegro [Physician] - (Suspect herpes zoster, V1, will defer prednisone to you.)
[2022-08-26] MEDS: Ibuprofen 400 MG TABLET PO (11:52)
[2022-08-26] MEDS: Acetaminophen 325 MG TABLET 975 MG PO (11:52)
[2022-08-26] MEDS: valACYclovir HCL 1,000 MG TABLET 1000 MG PO (12:19)
== END 2022-08-26 12:20 | disposition home or self-care (01) ==
PROVIDERS: Emergency Provider Student in an Organized Health Care Education/Training Program; PCP Family Medicine
DX: B02.9 Zoster without complications (principal)
CPT/HCPCS: 99284

== ENCOUNTER 2023-08-17 00:13 | Emergency (ER) | payer BC, SELFPAY ==
--- NOTE | ~2023-08-17 | XR_ITS ---
EXAMINATION: XR CHEST CLINICAL INFORMATION: Shortness of breath. COMPARISON: None available. TECHNIQUE: 2 views of the chest were obtained. FINDINGS: The cardiomediastinal silhouette is within normal limits. There is no focal lung consolidation or pleural effusion. The bony structures and soft tissues are unremarkable. XR/XR chest 2V IMPRESSION: No acute cardiopulmonary process.
[2023-08-17 00:26] VITALS: BP 103/63; PULSE 69; RESP 20; TEMP 36.1; O2SAT 97; BMI 29.3
[2023-08-17 01:11] LABS: COVID-19 Test Negative (Negative); IDNOW Serial# 08D9AD1C; IDNOW Serial# 9DB6401D; Influenza A Negative (Negative); Influenza B2 Negative (Negative)
[2023-08-17 04:23] VITALS: BP 119/73; PULSE 60; RESP 19; O2SAT 99
--- NOTE | 2023-08-17 06:46 | ED.GENADULT ---
HPI - General Adult General Chief complaint: Dyspnea Stated complaint: Diff breathing Time Seen by Provider: 08/17/23 06:42 Source: patient Mode of arrival: ambulatory Limitations: no limitations History of Present Illness HPI narrative: Patient is a 58 year old assigned female at with a history of RSV diagnosed on 08/05/2023 presenting to the emergency department today with persistent cough. Patient states that she was on prednisone and a cough suppressant but has run out of those and her symptoms persist. Patient denies any dizziness, lightheadedness, abdominal pain, nausea, vomiting, fever, chills, blurry vision, double vision, loss of vision, chest pain, difficulty breathing, shortness of breath, back pain, night sweats, pain with urination, increased urinary frequency, increased urinary urgency, blood in her urine or stool, syncope or a near syncopal episode, recent trauma or falls, bowel incontinence, bladder incontinence, bowel retention, bladder retention, or any other complaints at this time. Onset (ago): day(s) (12) Severity: mild Severity scale (1-10): 2 Relieving factors: none Exacerbating factors: none Associated symptoms: cough Treatments prior to arrival: none Related Data Previous Rx's Medication Instructions Recorded valacyclovir 1 gram tablet 1,000 mg PO TID 7 days #21 tabs 08/26/22 (Valtrex) benzonatate 100 mg capsule 100 mg PO BID PRN cough 7 days #14 08/17/23 caps doxycycline hyclate 100 mg tablet 100 mg PO BID 7 days #14 tabs 08/17/23 prednisone 20 mg tablet 20 mg PO DAILY 7 days #7 tabs 08/17/23 Allergies Allergy/AdvReac Type Severity Reaction Status Date / Time erythromycin base Allergy Rash Verified 08/26/22 07:06 Review of Systems Constitutional: Constitutional: Reports no additional constitutional complaints, Denies chills, Denies fever(s) and Denies night sweats Eyes: Eyes: Reports no additional eye complaints, Denies blurry vision, Denies change in vision, Denies diplopia, Denies eye discharge, Denies loss of vision and Denies eye pain ENT: Denies dizziness Cardiovascular: Cardiovascular: Reports no additional cardiovascular complaints, Denies chest pain, Denies lightheadedness, Denies Loss of Consciousness and Denies dyspnea Respiratory: Respiratory: Reports no additional respiratory complaints, Reports cough and Denies dyspnea Gastrointestinal: Gastrointestinal: Reports no additional gastrointestinal complaints, Denies abdominal pain, Denies melena, Denies hematochezia, Denies change in bowel habits and Denies change in stool character Genitourinary: Genitourinary: Denies hematuria, Denies urinary frequency, Denies dysuria, Denies urinary incontinence, Denies urinary hesitancy and Denies urinary urgency Musculoskeletal: Musculoskeletal: Reports no additional musculoskeletal complaints, Denies numbness and Denies tingling Neurologic: Denies dizziness, Denies loss of vision, Denies numbness and Denies tingling Psychiatric: Psychiatric: Reports no additional psychiatric complaints Endocrine: Endocrine: Reports no additional endocrine complaints Hematologic/Lymphatic: Hematologic/Lymphatic: Reports no additional hematologic/lymphatic complaints Allergic/Immunologic: Allergic/Immunologic: Reports no additional allergic/immunologic complaints PMFSH Past Medical History Attestation statement: The following information was validated with the patient. Source: old records reviewed and nursing notes reviewed Onset Date is defined in the Problem List Problems that require an onset date and time if occurred within 24 hrs of arrival to the ED Aortic Dissection and Rupture; Neurologic impairment; Cardiopulmonary Arrest; Endotracheal Intubation; Insertion or Replacement of Mechanical Circulatory Assist Device Social History Social History Smoked in Last 30 Days: No Advance Directives: No Advance Directives Information Provided: Yes Physical Exam ED Vital Signs: Vital Signs - 24 hr 08/17/23 00:26 08/17/23 04:23 08/17/23 07:04 Temperature 97.0 F Pulse Rate 69 60 73 Respiratory Rate 20 19 18 Blood Pressure 103/63 119/73 137/73 Pulse Oximetry 97 99 97 Oxygen Delivery Method Room Air Room Air Room Air BMI result Body Mass Index 29.3 Const General: cooperative, no acute distress, alert and awake Nutritional Appearance: well nourished Orientation/consciousness: patient oriented x3 Limitations: no limitations HENMT Head: Yes normal to inspection and Yes atraumatic Ears: hearing grossly normal bilaterally and external ears normal General nose exam: Normal external nose present, no nasal discharge noted and no epistaxis Face and sinus: Yes normal facial exam, No abrasion and No laceration Mouth: Normal oral and palatal mucosa present, no drooling and no muffled voice Eyes General: appearance normal, both eyes and all related structures Periorbital: periorbital findings normal Eyelids: Yes eyelids normal Conjunctivae: conjunctivae normal Pupils: Equal, round and reactive pupils present EOM: EOMs intact bilaterally Neck Neck: Yes normal visual inspection, Yes full ROM and Yes no lymphadenopathy Chest Chest palpation & inspection: normal inspection of the chest Resp Effort & Inspection: normal respiratory effort and able to speak in complete sentences Auscultation: clear to auscultation bilaterally GI Inspection: Yes normal to inspection Neuro General: patient oriented x3 and moves all extremities Cranial nerves: Yes Equal, round and reactive pupils present Cognition (Neuro): normal cognition Motor exam (neuro): 5/5 motor strength present throughout Sensory Exam: Normal double simultaneous stimulation for sensation Coordination: [id number] test normal Extrem General: Yes normal to inspection, Yes full ROM and Yes capillary refill normal Psych Appearance: grossly normal Mental Status: mental status grossly normal Affect: normal affect Attitude: cooperative Thought process: Normal thought process present Thought content: Normal thought content present Insight: Good insight present (Psych) Medical Decision Making Medical Decision Making [facility] Narrative: Patient is a 58 year old assigned female at with a history of RSV diagnosed on 08/05/2023 presenting to the emergency department today with persistent cough. Patient's physical exam was unremarkable. Patient's chest x-ray showed no acute process. Patient's COVID and influenza tests were negative. I explained my physical exam findings as well as all test results to the patient. I answered all questions asked by the patient. I stressed the importance of the patient taking her medication as prescribed. I stressed the importance of the patient following up with her primary care provider. I stressed the importance of the patient returning to the emergency department immediately if her symptoms were to worsen or if she were to develop any dizziness, shortness of breath, difficulty breathing, chest pain, blurry vision, loss of vision, nausea, vomiting, abdominal pain, fever, chills, back pain, or any other complaints. Patient verbalized agreement and understanding with this treatment plan and discharge. Differential Diagnosis Differential Diagnoses: The differential diagnosis associated with the presentation includes RSV Bronchitis Pneumonia Influenza COVID-19 Admission/Observation Consideration of admission/observation: Escalation of care including admission/observation considered Patient would have been admitted to the hospital had her work up had any findings where hospital admission was appropriate and her clinical presentation warranted hospital admission. Lab Data [facility] Lab Attestation statement: I reviewed the patient's lab results. My interpretation of these studies and their corresponding values is that they are grossly normal. Labs: Lab Results 08/17/23 Range/Units 00:52 COVID-19 (NITIN) Negative (Negative) COVID-19 Clin Com See Note Influenza Type A (LINDY) Negative (Negative) Influenza Type B (LINDY) Negative (Negative) Influenza A & B Note See Note Independent Interpretation I performed an independent interpretation of an: Plain X-Ray Interpretation: My interpretation is in agreement with the radiologist's impression of this imaging study. EXAMINATION: XR CHEST CLINICAL INFORMATION: Shortness of breath. COMPARISON: None available. TECHNIQUE: 2 views of the chest were obtained. FINDINGS: The cardiomediastinal silhouette is within normal limits. There is no focal lung consolidation or pleural effusion. The bony structures and soft tissues are unremarkable. XR/XR chest 2V IMPRESSION: No acute cardiopulmonary process. Dictated By: Dom Morrow Signed By: Electronically signed by Dom Morrow 08/17/23 0132 Radiology Impression Discussion of test interpretation with radiology: I have reviewed the radiologist's reading. Prescription Management I considered prescription management with: Antibiotic (patient given antibiotic for bronchitis) Discharge Plan Discharge Clinical Impression: Bronchitis Patient Disposition: Home, Self-Care Instructions: Acute Bronchitis (ED) Additional Instructions: Follow up with your primary care provider. Return to the emergency department immediately if your symptoms worsen or if you develop any dizziness, shortness of breath, difficulty breathing, chest pain, blurry vision, loss of vision, nausea, vomiting, abdominal pain, fever, chills, back pain, or any other complaints. Prescriptions: New prednisone 20 mg tablet 20 mg PO DAILY 7 Days Qty: 7 0RF benzonatate 100 mg capsule 100 mg PO BID PRN (Reason: cough) 7 Days Qty: 14 0RF doxycycline hyclate 100 mg tablet 100 mg PO BID 7 Days Qty: 14 0RF No Action valacyclovir [Valtrex] 1 gram tablet 1,000 mg PO TID 7 Days Qty: 21 0RF Referrals: Rock Baum MD [Primary Care Provider] - Stand Alone Forms: Work/School Release Interventions: ED Discharge Assessment Last Done: 08/17/23 07:04 Discharge Date/Time: 08/17/23 07:05 Print Language: Welsh
[2023-08-17 07:04] VITALS: BP 137/73; PULSE 73; RESP 18; O2SAT 97
== END 2023-08-17 07:05 | disposition home or self-care (01) ==
PROVIDERS: Emergency Provider Student in an Organized Health Care Education/Training Program; PCP Family Medicine
DX: J40 Bronchitis, not specified as acute or chronic (principal); R06.02 Shortness of breath; R05.9 Cough, unspecified; Z11.52 Encounter for screening for COVID-19
CPT/HCPCS: 71046; 87502; 87635; 99283; 99284

== ENCOUNTER 2023-11-03 15:24 | Outpatient (AMB) | payer BC, SELFPAY ==
[2023-11-03 15:27] VITALS: BP 130/86; PULSE 70; O2SAT 98
--- NOTE | 2023-11-03 15:27 | MHC.OFFWIV ---
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 She had a pain the 1st metacarpophalangeal joint. There is no swelling or ecchymosis but mild tenderness. Review of Systems Const All systems reviewed & are unremarkable except as noted in HPI and below Physical Exam Vital Signs: Last Vital Signs Pulse 70 11/03/23 15:27 BP 130/86 11/03/23 15:27 Pulse Ox 98 11/03/23 15:27 Oxygen Delivery Method Room Air 11/03/23 15:27 Const General: healthy appearing and no acute distress Extrem Other: Physical exam of the right thumb reveals mild tenderness at the 1st metacarpophalangeal joint. There is no swelling or ecchymosis present range of motion is full our collateral ligament is intact Results Reviewed Results Reviewed: I reviewed the results of her x-ray that was negative for fracture in her metacarpophalangeal joint she does have some arthritic changes in her IP joint which I discussed with her. Assessment & Plan Assessment & Plan (1) Sprain of right thumb: Code(s): S63.601A - Unspecified sprain of right thumb, initial encounter Plan: The patient was given a thumb spica splint to use for the next few weeks. She is instructed in gentle [id number] exercises of her wrist. And may advance activity to tolerance Plan See plan Medications: Refilled valacyclovir (Valtrex) 1,000 mg PO TID 7 days 21 tabs 0RF Coding Level of Care Code Est Pt Level 3 (51600) Diagnoses Sprain of right thumb S63.601A
== END 2023-11-03 16:32 | disposition home or self-care (01) ==
PROVIDERS: Visit Provider Physician Assistant Medical
DX: S63.601A Unspecified sprain of right thumb, initial encounter (principal)
CPT/HCPCS: 99213

== ENCOUNTER 2023-11-03 15:41 | Outpatient (REF) | payer BC, SELFPAY ==
--- NOTE | ~2023-11-03 | XR_ITS ---
EXAMINATION: XR HAND, RIGHT CLINICAL INFORMATION: Pain in right finger. COMPARISON: None available. TECHNIQUE: PA, lateral, and oblique views of the right hand. FINDINGS: The bones and soft tissues are normal. No fracture. Alignment is anatomic. Joint spaces are maintained. No erosions or soft tissue calcifications. XR/XR hand RT min 3V IMPRESSION: Unremarkable right hand exam.
== END 2023-11-03 15:42 | disposition home or self-care (01) ==
LOC: HO.HMGCX 15:41
PROVIDERS: PCP Internal Medicine; Visit Provider Physician Assistant Medical
DX: M79.644 Pain in right finger(s) (principal)
CPT/HCPCS: 73130

== ENCOUNTER 2024-05-15 12:29 | Emergency (ER) | payer OTHER, SELFPAY ==
[2024-05-15 12:31] VITALS: BP 105/79; PULSE 67; RESP 16; TEMP 36.1; O2SAT 98; BMI 34.1
--- NOTE | 2024-05-15 12:33 | ECG_ITS ---
Test Reason : pain Blood Pressure : / mmHG Vent. Rate : 063 BPM Atrial Rate : 063 BPM P-R Int : 148 ms QRS Dur : 074 ms QT Int : 452 ms P-R-T Axes : 008 -21 039 degrees QTc Int : 462 ms Normal sinus rhythm Minimal voltage criteria for LVH, may be normal variant ( R in aVL ) Possible Anterior infarct , age undetermined Nonspecific T wave abnormality Abnormal ECG No previous ECGs available Referred By: Charles Ruby Electronically Signed By:JIM HUANG
--- NOTE | 2024-05-15 12:34 | ED_ITS ---
HPI - General Adult General Chief complaint: General Medical Stated complaint: Low BP Time Seen by Provider: 05/15/24 13:53 History of Present Illness ED Provider: Shiloh KNOWLES narrative: The patient is a 59-year-old female who says that she was sitting had her office at work today when, around 11:00 or 11:30, she abruptly felt very lightheaded and fatigued. She felt as though she might pass out. She says that she took some her sees kisses in case her blood sugar was low. She ate some other food and waited for awhile but her symptoms did not resolve and so she ultimately drove herself to the hospital. The patient says that she has had similar episodes in the past but today's episode is more severe than usual. She says that she has had similar episodes with a frequency of more than 1 episode per month for approximately 3 years. Her last episode was 2 weeks ago. She says she has discuss these episodes with her regular doctor but no diagnosis has been made. She does not have a history of diabetes. She says she has no history of hypertension. The patient says that she had eaten a normal breakfast earlier in the morning. The episode was not associated with any chest pain or shortness of breath. No headache. Related Data Home Medications ?Medication ?Instructions ?Recorded ?Confirmed albuterol sulfate 90 mcg/actuation inhalation 11/03/23 aerosol inhaler diclofenac sodium 75 mg 75 mg PO BID 11/03/23 tablet,delayed release epinephrine 0.3 mg/0.3 mL 1 mg IM DAILY 11/03/23 injection, auto-injector Previous Rx's ?Medication ?Instructions ?Recorded valacyclovir 1 gram tablet 1,000 mg PO TID 7 days #21 tabs 11/03/23 (Valtrex) Allergies Allergy/AdvReac Type Severity Reaction Status Date / Time erythromycin base Allergy Rash Verified 05/15/24 12:34 Review of Systems 2 Review of Systems: Yes all other systems are reviewed and are negative [facility] Social History Social History Smoked in Last 30 Days: No Use of substances other than those prescribed or required for medical reasons: Yes Substance Use Type: Marijuana Substance Use Frequency: Daily Advance Directives: No Advance Directives Information Provided: Yes Physical Exam ED Vital Signs: Vital Signs - 24 hr 05/15/24 12:31 05/15/24 14:28 05/15/24 14:41 Temperature 97.0 F 98.4 F Pulse Rate 67 62 56 Respiratory Rate 16 16 16 Blood Pressure 105/79 99/76 89/52 L Pulse Oximetry 98 95 96 Oxygen Delivery Method Room Air Room Air Room Air 05/15/24 16:25 05/15/24 16:32 Temperature 97.9 F 97.9 F Pulse Rate 63 63 Respiratory Rate 16 16 Blood Pressure 106/56 L 106/56 L Pulse Oximetry 99 99 Oxygen Delivery Method Room Air Room Air BMI result Body Mass Index 34.1 Const Other: The patient is awake, alert, pleasant, cooperative. She does not appear in any distress. She does not appear ill or unwell in any way. HENMT Other: Face is symmetrical. Mucous membranes moist. Pharynx normal. Eyes Other: Pupils are round equal, conjunctivae are clear, extraocular movements intact. Neck Other: Neck is supple. No JVD. Resp Effort & Inspection: normal respiratory effort Auscultation: clear to auscultation bilaterally Cardio Rate: regular rate Rhythm: regular rhythm Heart sounds: S2 normal heart sound present GI Other: Abdomen is soft and nontender Skin Other: Skin is pale and dry. Neuro Other: The patient is awake and alert with a normal mental status. Cranial nerves 2-12 are intact. Moves all extremities normally and appropriately and seems grossly neurologically intact. Extrem Other: No peripheral edema, no calf swelling or tenderness. No asymmetry. Course Course Course Narrative: RME, this is a rapid medical exam performed by Markos Ruby please refer to primary provider for complete H&P- 59-year-old female presents for evaluation of weakness, fatigue. She reports about an hour and a half ago she felt weak like I just want to fall asleep. ? she states that she was sweaty. Plan for cardiac workup. Point of care glucose checked in triage. Medications Administered Discontinued Medications Generic Name Dose Route Start Last Admin Trade Name Freq PRN Reason Stop Dose Admin Sodium Chloride 1,000 mls @ 999 mls/hr 05/15/24 14:15 05/15/24 14:27 Ns IV 05/15/24 15:15 999 mls/hr .Q1H1M LILIAN Administration Medical Decision Making Medical Decision Making MDM Narrative: The patient is a 59-year-old female who comes to the emergency room by private vehicle after having an abrupt onset of intense fatigue and lightheadedness. She describes multiple previous similar episodes over the past couple of years. These episodes happen every few weeks. Today's episode was similar to previous episodes but perhaps more intense. Clinically the patient does not appear ill. She has no significant headache, no chest pain, no shortness of breath. Her EKG shows normal sinus rhythm in his nonischemic. Labs show an unremarkable CBC. Metabolic panel shows a creatinine of 1.01, BUN of 19, and a GFR of 56. Troponin is undetectable. LFTs are unremarkable. Lipase is normal. Overall the patient looks quite well in her vital signs are unremarkable. Her blood pressures are on the low side but this is apparently typical for her. She was given 1 L of IV fluids. I think she may be discharged to follow up with the regular doctor. She does not take much in the way of regular medications. She does take diclofenac. Given her slightly diminished GFR I have advised her to stop diclofenac until she discusses her kidney function further with her regular doctor. She was therefore discharged with instructions to increase fluid intake, hold diclofenac, follow up with her PCP, and return if worse. Lab Data 05/15/24 12:57 05/15/24 12:57 Labs: Lab Results 05/15/24 05/15/24 Range/Units 12:35 12:57 WBC 7.9 (4.8-10.8) X10*3/uL RBC 4.44 (4.20-5.50) X10*6/uL Hgb 13.7 (12.0-16.0) g/dl Hct 41.8 (37.0-47.0) % MCV 94.1 (80.0-98.0) fL MCH 30.9 (27.0-33.0) pg MCHC 32.8 (31.0-35.0) g/dl RDW 13.9 (11.0-16.0) % Plt Count 229 (160-400) X10*3/uL MPV 10.1 (9.4-12.3) fL Immature Gran % (Auto) 0.4 (0.0-0.4) % Neut % (Auto) 70.7 (45-73) % Lymph % (Auto) 19.0 L (20-40) % [place] % (Auto) 7.2 (2-11) % Eos % (Auto) 2.2 (0-4) % Baso % (Auto) 0.5 (0-2) % Lymph # (Auto) 1.5 (1.2-4.9) X10*3/uL [place] # (Auto) 0.6 (0.1-1.2) X10*3/uL Eos # (Auto) 0.2 (0.0-0.4) X10*3/uL Baso # (Auto) 0.0 (0.0-0.2) X10*3/uL Abs Immat Gran (auto) 0.03 (0.00-0.03) X10*3/uL Absolute Neuts (auto) 5.6 (2.0-8.3) x10*3/uL Absolute Nucleated RBC 0.000 (0.0-0.012) X10*3/uL Nucleated RBC % (auto) 0.0 (0.0-0.2) /100WBC PT 11.5 (10.9-12.4) SEC INR 1.0 (0.9-1.1) Sodium 140 (135-145) mmol/L Potassium 4.4 (3.3-5.1) mmol/L Chloride 106 (96-108) mmol/L Carbon Dioxide 25 (22-29) mmol/L Anion Gap 13 (12-20) BUN 19 H (9-16) mg/dL Creatinine 1.01 (0.5-1.4) mg/dL Estim Creat Clear Calc 61.2 Estimated GFR 56 POC Glucose 157 H (60-115) mg/dL Random Glucose 133 H (60-115) mg/dL Calcium 9.2 (8.4-10.2) mg/dL Total Bilirubin 0.3 (0.0-1.0) mg/dL AST 19 (5-31) U/L ALT 26 (0-31) U/L Alkaline Phosphatase 94 (39-117) U/L Troponin I High Sens < 2.7 (<3.5-17.0) ng/L Total Protein 6.9 (6.5-8.0) g/dL Albumin 3.9 (3.5-5.0) g/dL Lipase 41 (8-78) U/L Urine Color Yellow Urine Appearance Clear Urine pH 6.0 (5.0-9.0) Ur Specific [place] 1.020 (1.005-1.025) Urine Protein Negative (Neg-Trace) mg/dL Urine Glucose (UA) Negative (Negative) mg/dL Urine Ketones Negative (Negative) mg/dL Urine Blood Negative (Negative) Urine Nitrite Negative (Negative) Ur Leukocyte Esterase Small (1+) H (Negative) Urine RBC 0-2 (0-2) /HPF Urine WBC 0-5 (0-5) /HPF Ur Squamous Epith Cells 0-2 (0-2) /HPF Urine Bacteria 1+ (None Seen) Hyaline Casts 0-2 (0-2) /LPF Discharge Plan Discharge Clinical Impression: Episodic lightheadedness Patient Disposition: Home, Self-Care Additional Instructions: Your testing in the emergency room today suggests possibly some mild degree of dehydration but no other remarkable findings. The only test result of significance worth following up with your regular doctor is that your kidney function is slightly borderline. I would recommend avoiding diclofenac until you follow up with your regular doctor to discuss this further. Drink lot of fluids. Contact your regular doctor's office for a prompt follow up appointment to discuss these episodes further and to discuss your kidney function and your use of diclofenac. Return to the emergency room if you feel significantly worse. Prescriptions: No Action diclofenac sodium 75 mg tablet,delayed release (DR/EC) 75 mg PO BID albuterol sulfate 90 mcg/actuation HFA aerosol inhaler inhalation epinephrine 0.3 mg/0.3 mL auto-injector 1 mg IM DAILY valacyclovir [Valtrex] 1 gram tablet 1,000 mg PO TID 7 Days Qty: 21 0RF Referrals: Rock Baum MD [Primary Care Provider] - (Frequent episodes of lightheadedness, etiology unclear) Interventions: ED Discharge Assessment Last Done: 05/15/24 16:32 Discharge Date/Time: 05/15/24 16:33 Print Language: [place]
[2024-05-15 12:39] LABS: Glucose, Whole Blood 157 mg/dL (60-115)
[2024-05-15 13:05] LABS: MANUAL DIFF FLAG NO
[2024-05-15 13:06] LABS: Basophils Percent Auto 0.5 % (0-2); Eosinophils Absolute Auto 0.2 X10*3/uL (0.0-0.4); Eosinophils Percent Auto 2.2 % (0-4); Hematocrit 41.8 % (37.0-47.0); Hemoglobin 13.7 g/dl (12.0-16.0); Imm Gran Abs Auto 0.03 X10*3/uL (0.00-0.03); Imm Gran Pct Auto 0.4 % (0.0-0.4); Lymphocytes Absolute Auto 1.5 X10*3/uL (1.2-4.9); Mean Corpuscular HGB Conc 32.8 g/dl (31.0-35.0); Mean Corpuscular Hemoglobin 30.9 pg (27.0-33.0); Mean Corpuscular Volume 94.1 fL (80.0-98.0); Mean Platelet Volume 10.1 fL (9.4-12.3); Monocytes Absolute Auto 0.6 X10*3/uL (0.1-1.2); Monocytes Percent Auto 7.2 % (2-11); Neutrophils Absolute Auto 5.6 x10*3/uL (2.0-8.3); Neutrophils Percent Auto 70.7 % (45-73); Platelet Count 229 X10*3/uL (160-400); Red Blood Count 4.44 X10*6/uL (4.20-5.50); Red Cell Distribution Width 13.9 % (11.0-16.0); White Blood Count 7.9 X10*3/uL (4.8-10.8)
[2024-05-15 13:11] LABS: Appearance Urine Clear; Color Urine Yellow; Glucose Urine UA Negative (Negative); Leukocyte Esterase Urine Small (1+) (Negative); Nitrite Urine Negative (Negative); UMIC TRIGGER UACC YES; Urine Blood Negative (Negative); Urine Ketones Negative (Negative); Urine Protein Negative (Neg-Trace)
[2024-05-15 13:14] LABS: Prothrombin Time 11.5 SEC (10.9-12.4)
[2024-05-15 13:24] LABS: Alanine Aminotransferase 26 U/L (0-31); Albumin Level 3.9 g/dL (3.5-5.0); Alkaline Phosphatase 94 U/L (39-117); Anion Gap 13 (12-20); Aspartate Amino Transferase 19 U/L (5-31); Bilirubin Total 0.3 mg/dL (0.0-1.0); Blood Urea Nitrogen 19 mg/dL (9-16); Calcium 9.2 mg/dL (8.4-10.2); Carbon Dioxide 25 mmol/L (22-29); Chloride 106 mmol/L (96-108); Creatinine Clr Calc Pharmacy 61.2; Estimated Glomerular Filt Rate 56; Glucose Random 133 mg/dL (60-115); Lipase 41 U/L (8-78); Potassium 4.4 mmol/L (3.3-5.1); Sodium 140 mmol/L (135-145); Total Protein 6.9 g/dL (6.5-8.0)
[2024-05-15 13:31] LABS: Troponin-I High Sensitivity < 2.7 ng/L (<3.5-17.0)
[2024-05-15 14:04] LABS: Bacteria Urine 1+ (None Seen); Hyaline Casts Urine 0-2 /LPF (0-2); RBC Urine 0-2 /HPF (0-2); Squamous Epithelial Cell Urine 0-2 /HPF (0-2); UACC Culture Trigger YES; WBC Urine 0-5 /HPF (0-5)
[2024-05-15] MEDS: 0.9 % Sodium Chloride 1,000 ML 999 ML IV (14:27)
[2024-05-15 14:28] VITALS: BP 99/76; PULSE 62; RESP 16; TEMP 36.9; O2SAT 95
--- NOTE | 2024-05-15 14:30 | PC.NURSE ---
Pt comes to ED today for feeling generally unwell. Denies any pain at this time. VSS, afebrile, A&Ox3 20g LAC; IVF per MAR. Awaiting disposition.
[2024-05-15 14:41] VITALS: BP 89/52; PULSE 56; RESP 16; O2SAT 96
[2024-05-15 16:25] VITALS: BP 106/56; PULSE 63; RESP 16; TEMP 36.6; O2SAT 99
[2024-05-15 16:32] VITALS: BP 106/56; PULSE 63; RESP 16; TEMP 36.6; O2SAT 99
== END 2024-05-15 16:33 | disposition home or self-care (01) ==
PROVIDERS: Physician Assistant; Emergency Provider Emergency Medicine; PCP Family Medicine
DX: R42 Dizziness and giddiness (principal); R53.83 Other fatigue; R53.1 Weakness; R94.4 Abnormal results of kidney function studies; R03.1 Nonspecific low blood-pressure reading; E11.9 Type 2 diabetes mellitus without complications; F12.90 Cannabis use, unspecified, uncomplicated; Z79.899 Other long term (current) drug therapy
CPT/HCPCS: 36415; 80053; 81001; 82947; 83690; 84484; 85025; 85610; 87086; 93005; 99283; 99285